=== PATIENT | female | born 2005 | race Caucasian/White ===

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

== ENCOUNTER 2024-02-12 15:33 | Emergency (ER) | payer OTHER ==
[2024-02-12 15:56] VITALS: BP 112/83; PULSE 72; RESP 18; TEMP 98.8; BMI 16.0
[2024-02-12] MEDS ORDERED: KETOROLAC TROMETHAMINE 30 MG/1 ML VIAL ONE (16:27)
[2024-02-12] MEDS ORDERED: LIDOCAINE 5% TOPICAL PATCH ONE (16:28)
[2024-02-12] MEDS: KETOROLAC TROMETHAMINE 30 MG/1 ML VIAL IM ONE (16:44)
[2024-02-12] MEDS: LIDOCAINE 5% TOPICAL PATCH TP ONE (16:44)
[2024-02-12] MEDS: ACETAMINOPHEN 500 MG TABLET (FP) PO ONE (17:45)
[2024-02-12] MEDS ORDERED: LIDOCAINE PATCH REMOVAL MC SCH (22:00)
== END 2024-02-12 17:49 | disposition home or self-care (01) ==
LOC: FER 15:33
PROC: 3E0233Z Introduction of Anti-inflammatory into Muscle, Percutaneous Approach (ICD-10-PCS; principal; 2024-02-12)
DX: M25.511 Pain in right shoulder (principal); X50.1XXA Overexertion from prolonged static or awkward postures, initial encounter
CPT/HCPCS: 99284-25

== ENCOUNTER 2024-06-22 16:15 | Emergency (ER) | payer OTHER ==
[2024-06-22 16:55] VITALS: BP 125/86; PULSE 68; RESP 18; TEMP 98.5; BMI 16.0
== END 2024-06-22 20:02 | disposition home or self-care (01) ==
LOC: FER 16:15
DX: M79.661 Pain in right lower leg (principal); M79.662 Pain in left lower leg
CPT/HCPCS: 93970-TC; 99284-25

== ENCOUNTER 2024-11-17 19:57 | Emergency (ER) | payer OTHER ==
[2024-11-17 20:32] VITALS: BP 124/86; PULSE 74; RESP 18; TEMP 98.2; BMI 14.1
[2024-11-17 20:37] LABS: ABSOLUTE IMMATURE GRANULOCYTES 0.01 x10^3/uL (0.0-0.031); BASOPHILS # 0.02 x10^3/uL (0.01-0.08); EOSINOPHIL % 0.3 % (0.7-5.8); EOSINOPHILS # 0.02 x10^3/uL (0.04-0.36); HCG,QUALITATIVE URINE Negative; HEMATOCRIT 41.3 % (34.1-44.9); HEMOGLOBIN 14.6 g/dL (11.2-15.7); MCHC 35.4 g/dl (32.2-35.5); MEAN CELL VOLUME 87.5 fl (79.4-94.8); MONOCYTE # 0.37 x10^3/uL (0.24-0.86); MONOCYTE % 5.2 % (4.7-12.5); PLATELET COUNT 245 x10^3/uL (182-369); RDW 12.1 % (12.1-16.5)
[2024-11-17 20:46] LABS: EPITHELIAL CELLS 3+ /hpf
[2024-11-17 20:59] LABS: ALBUMIN 5.7 g/dl (3.4-5.0); BILIRUBIN,TOTAL 1.2 mg/dl (0.2-1); CALCIUM 10.3 mg/dl (8.5-10.1); CREATININE 0.9 mg/dl (0.6-1.3); POTASSIUM 3.8 mmol/L (3.5-5.1); TOT PROT 8.2 g/dl (6.4-8.2)
[2024-11-17 23:00] LABS: HCV DIAGNOSTIC IN-HOUSE W/RFLX NON-REACTIVE (NONREACTIVE); HIV INTERPRETATION NEGATIVE (NEGATIVE)
== END 2024-11-17 21:26 | disposition home or self-care (01) ==
LOC: FER 19:57
DX: F43.9 Reaction to severe stress, unspecified (principal); R00.2 Palpitations; R06.02 Shortness of breath; F41.9 Anxiety disorder, unspecified
CPT/HCPCS: 36415; 80053; 81003; 81015; 84443; 84703; 85025; 86803; 87389; 93005; 93010; 99283-25

== ENCOUNTER 2024-11-20 13:16 | Emergency (ER) | payer OTHER ==
[2024-11-20 13:22] VITALS: BP 114/80; PULSE 63; RESP 17; TEMP 98.8; BMI 14.1
[2024-11-20] MEDS ORDERED: MAG HYDROX/AL HYDROX/SIMETH 30 ML UNIT-DOSE CUP ONE (13:51)
[2024-11-20] MEDS ORDERED: FAMOTIDINE 20 MG TABLET ONE (13:51)
[2024-11-20] MEDS: MAG HYDROX/AL HYDROX/SIMETH -MYLANTA- ORAL SUSPENSION PO ONE (13:53)
[2024-11-20] MEDS: FAMOTIDINE 20 MG TABLET PO ONE (13:53)
== END 2024-11-20 14:18 | disposition home or self-care (01) ==
LOC: FER 13:16
DX: K59.00 Constipation, unspecified (principal); R14.0 Abdominal distension (gaseous); R14.3 Flatulence; K21.9 Gastro-esophageal reflux disease without esophagitis
CPT/HCPCS: 99283-25